=== PATIENT | female | born 1945 | race Two or more races ===

== ENCOUNTER 2017-09-01 08:15 | Outpatient (CLI) | payer OTHER ==
[~2017-09-01 08:15] MED LIST: AMOX1TAB12 PO; AMOX1TAB5 PO; AVELOX ABC PAC400 MG PO; CATAFLAM50 MG PO; COZAAR100 MG; DILTIA XT120 MG; DOXAZOSIN MESYLA8 MG; DOXAZOSIN MESYLA8 MG PO; FERRO-TIME325 MG PO; HYDRALAZINE HCL25 MG PO; INDUR; ISOSORBIDE DINI30 MG; ISOSORBIDE DINI30 MG PO; LASIX20 MG; LISINOPRIL40 MG; MUCINEX600 MG PO; NEURONTIN800 MG; NIFE60TA3 PO; PEPCID20 MG; TRAMADOL HCL50 MG PO; ZANTAC25 MG/1 ML
== END 2017-09-01 08:16 | disposition home or self-care (01) ==
LOC: RAD 08:15
DX: M19.012 Primary osteoarthritis, left shoulder (principal)

== ENCOUNTER 2018-05-30 10:44 | Outpatient (CLI) | payer OTHER | END 2018-05-30 10:53 | disposition home or self-care (01) | LOC: RAD 501 10:44 | DX: M54.2 Cervicalgia (principal); M54.5 Low back pain; M25.512 Pain in left shoulder ==

== ENCOUNTER 2018-06-12 09:07 | Inpatient (IN) | payer OTHER ==
[~2018-06-12] VITALS: Ht 157.5 cm; Wt 98.0 kg
[2018-06-21] MEDS ORDERED: XOPENEX0.63 MG/3 IH (10:42)
[2018-06-21] MEDS ORDERED: LIPITOR20 MG PO (10:43)
[2018-06-21] MEDS ORDERED: DOXAZOSIN MESYLA8 MG PO (10:43)
[2018-06-21] MEDS ORDERED: PROCARDIA XL90 MG PO (10:44)
[2018-06-21] MEDS ORDERED: CLONIDINE HCL0.2 MG PO (10:44)
[2018-06-21] MEDS ORDERED: ASA-EC81 MG PO (10:45)
[2018-06-21] MEDS ORDERED: BENZONATATE100 MG PO (10:45)
== END 2018-06-21 17:07 | disposition home or self-care (01) | DRG 202 ==
LOC: ER 09:07 → MEDJ 21:28
PROC: 4A033R1 Measurement of Arterial Saturation, Peripheral, Percutaneous Approach (ICD-10-PCS; principal; 2018-06-12)
PROC: 3E0F7GC Introduction of Other Therapeutic Substance into Respiratory Tract, Via Natural or Artificial Opening (ICD-10-PCS; 2018-06-12)
PROC: BB24ZZZ Computerized Tomography (CT Scan) of Bilateral Lungs (ICD-10-PCS; 2018-06-12)
PROC: BT43ZZZ Ultrasonography of Bilateral Kidneys (ICD-10-PCS; 2018-06-16)
PROC: CT131ZZ Planar Nuclear Medicine Imaging of Kidneys, Ureters and Bladder using Technetium 99m (Tc-99m) (ICD-10-PCS; 2018-06-20)
DX: J45.41 Moderate persistent asthma with (acute) exacerbation (principal); J18.9 Pneumonia, unspecified organism; N17.8 Other acute kidney failure; R09.02 Hypoxemia; G47.33 Obstructive sleep apnea (adult) (pediatric); I13.10 Hypertensive heart and chronic kidney disease without heart failure, with stage 1 through stage 4 chronic kidney disease, or unspecified chronic kidney disease; N18.1 Chronic kidney disease, stage 1; E87.5 Hyperkalemia

== ENCOUNTER 2018-07-07 12:32 | Emergency (ER) | payer OTHER ==
[~2018-07-07] VITALS: Ht 157.5 cm; Wt 95.3 kg
[~2018-07-07 12:32] MED LIST changes: +ASA-EC81 MG PO; +BENZONATATE100 MG PO; +CLONIDINE HCL0.2 MG PO; +LIPITOR20 MG PO; +PROCARDIA XL90 MG PO; +XOPENEX0.63 MG/3 IH
[2018-07-07] MEDS ORDERED: ISOSORBIDE MONO30 MG PO (12:43)
[2018-07-07] MEDS ORDERED: ADALAT CC90 MG PO (12:44)
[2018-07-07] MEDS ORDERED: APRESOLINE 10MG10 MG (12:44)
== END 2018-07-07 17:54 | disposition home or self-care (01) ==
LOC: ER 12:32
DX: L03.116 Cellulitis of left lower limb (principal); L03.115 Cellulitis of right lower limb

== ENCOUNTER 2018-10-14 12:17 | Inpatient (IN) | payer OTHER ==
[~2018-10-14] VITALS: Ht 167.6 cm; Wt 95.3 kg
[~2018-10-14 12:17] MED LIST changes: +ADALAT CC90 MG PO; +APRESOLINE 10MG10 MG; +ISOSORBIDE MONO30 MG PO
--- NOTE | 2018-10-14 13:18 | NUR ---
SE RECIBE PTE ALERTA Y ORIENTADA X3,ACOMPNADA POR REAGAN HIJA LA CUAL REFIERE SENTIRSE ASFICIADA SE LE TIFFANIE S/V ARROJA 98 DE OXIG[address] ,51 DE PUL[address] ,PTE REFIERE SENTIRSE DEBIL.
[2018-10-14] MEDS ORDERED: CARVEDILOL12.5 MG (13:20)
[2018-10-14] MEDS ORDERED: ASPIR 8181 MG (13:20)
[2018-10-14] MEDS ORDERED: COZAAR50 MG (13:21)
[2018-10-14] MEDS ORDERED: ZANTAC300 MG (13:21)
[2018-10-14] MEDS ORDERED: CATAPRES0.3 M1 (13:21)
[2018-10-14] MEDS ORDERED: FEOSOL325 MG (13:21)
[2018-10-14] MEDS ORDERED: LASIX40 MG (13:21)
[2018-10-14] MEDS ORDERED: ZOCOR40 MG (13:22)
--- NOTE | 2018-10-14 13:39 | NUR ---
SE REALIZA ELECTROCARDIOGRAMA Y SE PRESENTA A MARIANGEL MEGAN QUIEN ORDENA UBICAR PACIENTE EN AREA DE CHEST PAIN.
--- NOTE | 2018-10-14 14:43 | NUR ---
SE RECIBE PTE FEMENIA DE 73 YRS ALERTA CONCIETNE Y TRANAUILA EN CAMA EN LA UNIDAD DE CHEST PAIN. PTE LLEGA POR BRADICARDIA ALA UNIDAD ORDENADO POR LA MEGAN AUGUST. SE CONCNETA A MONITOR CARDIACO Y OXIMENTRIA , SE LE CANALIZA CON ANGIO #22 EN MANO IZQUIERDA . POR ORDEN DE LA MEGAN AUGUST QUE SE TOMEN MUESTRA ,SE MANTIENE EN ESPERA DE SER EVALUADA .POR . SE ENVIA MUETRAS A EL LABORATORIO.
--- NOTE | 2018-10-14 17:14 | NUR ---
PACIENTE ALERTA Y ORIENTADA EN CAMA , CONECTADA A MONITOR CARDIACO Y OXIMETRIA DE PULSO. EVALUADA POR LA .ANTONYTA SE ORIENTA A PACIENTE SOBRE TRATAMIENTO MEDICO SE EXTRAEN MUESTRAS DE MURALI Y SE ADMISNITRAN MEDICAMENTOS LASHELL ORDEN MEDICA BAJO MEDIDAS ASEPTICAS.
--- NOTE | 2018-10-14 23:35 | NUR ---
SE RECIBE PACIENTE EN CAMA #17 AREA DE CHEST PAIN.SE OFRECE TRISHA PARA EVALUAR CONDICION Y OFRECER CUIDADOS CORRESPONDIENTES.PACIENTE ALERTA,ACTIVA Y ORIENTA DA,CONECTADA A MONITOR CARDIACO CON SATUROMETRO,IVF'S PATENTES BAJANDO .45%NACL A 100MLS/HR POR ANGIO #22 2N MANO IZQ.AREA SUPRIYA DE EDEMA Y/O ERITEMA,PARRA PATENTE BAJANDO A GRAVEDAD ORINA AMARILLA JIMMY.BARANDAS ELEVADAS POR REAGAN SEGURI DAD,ACOMPANADA DE FAMILIAR.SE CONTINUA MONITOREANDO EN TURNO POR CAMBIOS SIGNIFICATIVOS.
--- NOTE | 2018-10-15 08:25 | NUR ---
SE RECIBE PACIENTE DE TURNO ANTERIOR.EN CAMA NUN-17 DE LA UNIDAD DE MANEJO DE DOLOR DE PECHO DE LA OSMAR DE EMERGENCIAS.ESTA CONECTADA A MONITOR CARDIACO Y OXIMETRIA.AREA DE VENOPUNCION ESTA LIMPIA Y SECA,SUPRIYA DE EDEMA. RECIBIENDO POR MEDIO DE VENA PERIFERAL EN BRAZO IZQ:0.45 NSS A 100 ML/HR. PACIENTE Y FAMILIAR SON ORIENTADOS SOBRE PROCEDIMIENTOS A LLEVARSE A CABO, LO CUAL REFIEREN COMPRENDER. ES MANTENIDA CON CABEZERA A 45 GRADOS,BARANDAS ELEVADAS,TIMBRE ACCESIBLE Y EN OBSERVACION KELLY POR CAMBIOS EN CONDICION.
[2018-10-18] MEDS ORDERED: LEVOFLOXAC750 MG/150 PO (13:11)
[2018-10-18] MEDS ORDERED: XOPENEX0.63 MG/3 IH (13:12)
[2018-10-18] MEDS ORDERED: APRESOLINE 10MG10 MG PO (13:14)
[2018-10-18] MEDS ORDERED: ISOSORBIDE MONO30 MG PO (13:14)
[2018-10-18] MEDS ORDERED: LOSARTAN POTAS100 MG PO (13:14)
[2018-10-18] MEDS ORDERED: PROCARDIA XL90 MG PO (13:15)
[2018-10-18] MEDS ORDERED: FUROSEMIDE10 MG/1 M1 PO (13:16)
== END 2018-10-18 14:00 | disposition home or self-care (01) | DRG 291 ==
LOC: ER 12:17 → SEC-K 10-15 12:16 → MEDJ 10-15 12:16
PROVIDERS: ADMIT Specialist
PROC: 3E0F7GC Introduction of Other Therapeutic Substance into Respiratory Tract, Via Natural or Artificial Opening (ICD-10-PCS; principal; 2018-10-15)
PROC: B246ZZZ Ultrasonography of Right and Left Heart (ICD-10-PCS; 2018-10-17)
DX: I13.0 Hypertensive heart and chronic kidney disease with heart failure and stage 1 through stage 4 chronic kidney disease, or unspecified chronic kidney disease (principal); I50.33 Acute on chronic diastolic (congestive) heart failure; J16.8 Pneumonia due to other specified infectious organisms; N17.8 Other acute kidney failure; J45.909 Unspecified asthma, uncomplicated; I95.89 Other hypotension; E87.5 Hyperkalemia; E86.0 Dehydration; N18.3 Chronic kidney disease, stage 3 (moderate)

== ENCOUNTER 2020-08-17 12:06 | Inpatient (IN) | payer OTHER ==
[~2020-08-17] VITALS: Ht 167.6 cm; Wt 98.0 kg
[~2020-08-17 12:06] MED LIST changes: +APRESOLINE 10MG10 MG PO; +ASPIR 8181 MG; +CARVEDILOL12.5 MG; +CATAPRES0.3 M1; +COZAAR50 MG; +FEOSOL325 MG; +FUROSEMIDE10 MG/1 M1 PO; +LASIX40 MG; +LEVOFLOXAC750 MG/150 PO; +LOSARTAN POTAS100 MG PO; +ZANTAC300 MG; +ZOCOR40 MG
== END 2020-08-30 18:48 | disposition home or self-care (01) | DRG 674 ==
LOC: ER 12:06 → MEDI 23:10
PROVIDERS: Radiology Vascular & Interventional Radiology; ADMIT Specialist; ATTEND Specialist
PROC: 3E0F7GC Introduction of Other Therapeutic Substance into Respiratory Tract, Via Natural or Artificial Opening (ICD-10-PCS; 2020-08-17)
PROC: 4A12X4Z Monitoring of Cardiac Electrical Activity, External Approach (ICD-10-PCS; 2020-08-18)
PROC: 3E0F7SF Introduction of Other Gas into Respiratory Tract, Via Natural or Artificial Opening (ICD-10-PCS; 2020-08-18)
PROC: 02H633Z Insertion of Infusion Device into Right Atrium, Percutaneous Approach (ICD-10-PCS; 2020-08-20)
PROC: 5A1D70Z Performance of Urinary Filtration, Intermittent, Less than 6 Hours Per Day (ICD-10-PCS; 2020-08-20)
PROC: 0JH63XZ Insertion of Tunneled Vascular Access Device into Chest Subcutaneous Tissue and Fascia, Percutaneous Approach (ICD-10-PCS; principal; 2020-08-20 17:00)
PROC: 30233N1 Transfusion of Nonautologous Red Blood Cells into Peripheral Vein, Percutaneous Approach (ICD-10-PCS; 2020-08-21)
DX: N17.8 Other acute kidney failure (principal); I13.2 Hypertensive heart and chronic kidney disease with heart failure and with stage 5 chronic kidney disease, or end stage renal disease; E87.1 Hypo-osmolality and hyponatremia; E87.2 Acidosis; T82.838A Hemorrhage due to vascular prosthetic devices, implants and grafts, initial encounter; N18.6 End stage renal disease; Z79.4 Long term (current) use of insulin; E86.0 Dehydration; E11.22 Type 2 diabetes mellitus with diabetic chronic kidney disease; Z99.2 Dependence on renal dialysis; G47.30 Sleep apnea, unspecified; Z20.822 Contact with and (suspected) exposure to COVID-19; E66.01 Morbid (severe) obesity due to excess calories; I27.29 Other secondary pulmonary hypertension; D69.59 Other secondary thrombocytopenia; T50.3X5A Adverse effect of electrolytic, caloric and water-balance agents, initial encounter; D63.1 Anemia in chronic kidney disease; I50.9 Heart failure, unspecified

== ENCOUNTER 2020-09-07 10:36 | Emergency (ER) | payer OTHER ==
[~2020-09-07] VITALS: Ht 167.6 cm; Wt 77.1 kg
[2020-09-07] MEDS ORDERED: LASIX40 MG (10:48)
[2020-09-07] MEDS ORDERED: CARDURA XL4 MG (10:49)
== END 2020-09-07 18:46 | disposition home or self-care (01) ==
LOC: ER 10:36
DX: I12.0 Hypertensive chronic kidney disease with stage 5 chronic kidney disease or end stage renal disease (principal); N18.6 End stage renal disease; I95.89 Other hypotension; E87.6 Hypokalemia; Z99.2 Dependence on renal dialysis

== ENCOUNTER → 2020-10-14 | Outpatient (CLI) | payer OTHER ==
[~2020-10-14] MED LIST changes: +CARDURA XL4 MG
== END | disposition home or self-care (01) ==
LOC: RAD 09:43
PROVIDERS: ATTEND Surgery
DX: I10 Essential (primary) hypertension (principal)

== ENCOUNTER 2022-01-22 07:21 | Emergency (ER) | payer OTHER ==
[~2022-01-22] VITALS: Ht 167.6 cm; Wt 113.4 kg
[2022-01-22] MEDS ORDERED: ATORVASTATIN CA40 MG (08:05)
[2022-01-22] MEDS ORDERED: PRILOSEC10 MG (08:05)
== END 2022-01-22 09:29 | disposition home or self-care (01) ==
LOC: ER 07:21
DX: A03.9 Shigellosis, unspecified (principal); B02.9 Zoster without complications; I10 Essential (primary) hypertension; E78.00 Pure hypercholesterolemia, unspecified

== ENCOUNTER 2023-02-10 13:10 | Emergency (ER) | payer OTHER ==
[~2023-02-10] VITALS: Ht 162.6 cm; Wt 113.4 kg
[~2023-02-10 13:10] MED LIST changes: +ATORVASTATIN CA40 MG; +PRILOSEC10 MG
== END 2023-02-10 18:39 | disposition home or self-care (01) ==
LOC: ER 13:10
DX: M51.26 Other intervertebral disc displacement, lumbar region (principal); I49.8 Other specified cardiac arrhythmias; I50.9 Heart failure, unspecified; E11.9 Type 2 diabetes mellitus without complications; E78.00 Pure hypercholesterolemia, unspecified; F32.89 Other specified depressive episodes; M54.30 Sciatica, unspecified side

== ENCOUNTER → 2023-03-07 | Emergency (ER) | payer OTHER ==
[~2023-03-07] VITALS: Ht 167.6 cm; Wt 90.7 kg
[~2023-03-07] MED LIST changes: +ACID REDUCER20 M1 PO; +ATORVASTATIN CA40 MG PO; +DULOXETINE HCL40 MG PO; +GABAPENTIN800 MG; +HYDRALAZINE HCL50 MG PO; +NORFLEX100MG PO; +SEVELAMER CARB800 MG PO; +TRAM1TAB98 PO; +VITAMIN D310 MCG/1 M
== END | disposition expired ==
LOC: ER 17:21
DX: R06.02 Shortness of breath (principal); I13.0 Hypertensive heart and chronic kidney disease with heart failure and stage 1 through stage 4 chronic kidney disease, or unspecified chronic kidney disease; I50.9 Heart failure, unspecified; I46.9 Cardiac arrest, cause unspecified; N18.9 Chronic kidney disease, unspecified; E11.22 Type 2 diabetes mellitus with diabetic chronic kidney disease